=== PATIENT | female | born 1940 | race Caucasian/White ===

== ENCOUNTER 2024-04-13 07:28 | Day surgery (SDC) | payer MEDICARE, OTHER ==
[2024-04-07 10:00] LABS: BASOPHILS # (AUTO) 0.1 X10'3 (0-0.2); BASOPHILS % (AUTO) 1.1 % (0-1); EOSINOPHILS # (AUTO) 0.2 X10'3 (0-0.9); EOSINOPHILS % (AUTO) 3.2 % (0-6); LYMPHOCYTES # (AUTO) 1.2 X10'3 (1.1-4.8); LYMPHOCYTES % (AUTO) 18.5 % (21-51); MEAN CORPUSCULAR HEMOGLOBIN 30.6 PG (27.0-31.0); MEAN CORPUSCULAR HGB CONC 33.8 g/dL (33.0-36.5); MEAN CORPUSCULAR VOLUME 90.6 FL (78-98); MEAN PLATELET VOLUME 8.2 FL (7.4-10.4); MONOCYTES # (AUTO) 0.7 X10'3 (0-0.9); MONOCYTES % (AUTO) 11.1 % (2-12); NEUTROPHILS # (AUTO) 4.3 X10'3 (1.8-7.7); NEUTROPHILS % (AUTO) 66.1 % (42-75); PRE OP HEMOGLOBIN 13.5 g/dL (12.0-16.0); PRE OP PLATELET COUNT 248 X10'3 (140-440); PRE OP WHITE BLOOD COUNT 6.5 10'3 (4.8-10.8); RED BLOOD COUNT 4.41 X10'6 (4.20-5.60); RED CELL DISTRIBUTION WIDTH 13.2 % (11.5-14.5)
[2024-04-07 10:05] LABS: ALBUMIN 3.8 G/DL (3.4-5.0); ALBUMIN/GLOBULIN RATIO 1.2 (1.1-1.5); ALKALINE PHOSPHATASE 77 IU/L (46-116); BLOOD UREA NITROGEN 17 MG/DL (7-18); BUN/CREATININE RATIO 15.7 (10.0-20.0); CALCIUM 9.7 MG/DL (8.5-10.1); CHLORIDE 106 MMOL/L (99-107); CREATININE 1.08 MG/DL (0.40-0.90); PRE OP ALT 24 U/L (30-65); PRE OP ANION GAP 9 (8-16); PRE OP AST 20 U/L (10-37); PRE OP BILIRUB, TOTAL 0.8 MG/DL (0.0-1.0); PRE OP GLUCOSE 99 MG/DL (70-104); PRE OP POTASSIUM 4.3 MMOL/L (3.4-5.1); PRE OP SODIUM 142 MMOL/L (135-145); TOTAL CARBON DIOXIDE 27.3 MMOL/L (24-32); eGFR 48 ML/MIN
[~2024-04-13] VITALS: Ht 160 cm; Wt 64.0 kg
[2024-04-13] VITALS (7 sets, daily range): BP systolic 136–156; BP diastolic 69–78; PULSE 53–60; RESP 13–16; TEMP 96.1; O2SAT 95–100
[2024-04-13] MEDS: DOCUMENT DATE & TIME OF BETA-BLOCKER PO ONE (05:30)
[2024-04-13] MEDS: famotidine 20mg tablet PO ONE (05:30)
[2024-04-13] MEDS: cefazolin 2gm/D5W 100mL 100 ML IV ONE (05:30)
[~2024-04-13 07:28] MED LIST: ATOR10TA70 PO; DONE10TA44 PO; FEBU40TA6 PO; IRBE300T26 PO; MEMA21CA PO; METO-384 PO; TRIA1CAP88 PO; ringers solution, lacted 1,000 ML IV SCH
[2024-04-13] MEDS ORDERED: fentaNYL/PF 50MCG/1 ML 2ML syringe ONE (09:18)
[2024-04-13] MEDS ORDERED: midazolam 1 mg/ML 2ml injection ONE (09:18)
[2024-04-13] MEDS ORDERED: ketorolac trometh. 30mg/ml inj. ONE (09:20)
[2024-04-13] MEDS ORDERED: LIDOcaine 2% (20mg/ml) 5ml vial ONE (09:20)
[2024-04-13] MEDS ORDERED: LIDOcaine 0.5% (5mg/ml) 50ml vial ONE (09:20)
[2024-04-13] MEDS ORDERED: BUPIVAcaine/PF 2.5mg/ml (0.25%) 10ml vial ONE (09:23)
== END 2024-04-13 10:16 | disposition home or self-care (01) ==
LOC: PAS 07:28
PROVIDERS: ATTEND Orthopaedic Surgery Hand Surgery
DX: G56.02 Carpal tunnel syndrome, left upper limb (principal); G56.22 Lesion of ulnar nerve, left upper limb; I10 Essential (primary) hypertension; E78.5 Hyperlipidemia, unspecified; I20.9 Angina pectoris, unspecified; F03.90 Unspecified dementia, unspecified severity, without behavioral disturbance, psychotic disturbance, mood disturbance, and anxiety; Z79.899 Other long term (current) drug therapy; Z90.12 Acquired absence of left breast and nipple; Z98.51 Tubal ligation status; Z88.2 Allergy status to sulfonamides; Z88.8 Allergy status to other drugs, medicaments and biological substances
CPT/HCPCS: 36415; 64718; 64721; 80053; 82948; 85025; A4215; A6449; J0690; J1885; J2001; J2250; J3010; J3490; J7030; J7120; Z7506; Z7512; Z7610